=== PATIENT | female | born 1975 | race African-American/Black ===

== ENCOUNTER 2019-04-16 14:51 | Outpatient (CLI) | payer OTHER ==
--- NOTE | 2019-04-16 15:14 | RAD ---
EXAM: Chest PA and lateral: HISTORY: Preoperative chest radiograph. COMPARISON: None. FINDINGS: Heart: Normal cardiac silhouette Aorta: Unremarkable Pulmonary vessels: Normal Costophrenic angles: Costophrenic angles are clear. Lungs: No consolidation or masses. Pneumothorax: No pneumothorax Osseous structures: No osseous abnormalities IMPRESSION: No acute cardiopulmonary process.
== END 2019-04-16 14:52 | disposition home or self-care (01) ==
LOC: BICRAD 14:51
DX: Z01.818 Encounter for other preprocedural examination (principal)
CPT/HCPCS: 71046

== ENCOUNTER 2019-05-30 11:05 | Inpatient (IN) | payer OTHER ==
[2019-05-30] MEDS ORDERED: Iopamidol-370 76% 500 ML 1 ML ONE (12:20)
--- NOTE | 2019-05-30 12:48 | ULT ---
Left lower extremity venous duplex exam HISTORY: Leg pain and swelling. COMPARISON: None. FINDINGS: Real-time color Doppler evaluation of the left lower extremity was performed from groin to calf. This includes evaluation the common femoral superficial profundofemoral, saphenous, popliteal and posterior tibial veins. This shows some thrombus within the mid portion of the posterior tibial veins at the calf level. The remainder the deep venous system is patent with normal compressibility and augmentation. IMPRESSION: Calf DVT with thrombus demonstrated at the mid posterior tibial vein level.
[2019-05-30] MEDS ORDERED: Enoxaparin Sodium 60 MG/0.6 ML SYRINGE ONE (13:47)
[2019-05-30] MEDS ORDERED: HYDROcodone/Acetaminophen 10/325 mg Tablet ONE (13:52)
[2019-05-30 13:53] LABS: #Basophils 0.1 thou/uL (0.0-0.2); #Eosinphils 0.6 thou/uL (0.0-0.7); #Lymphocytes 2.5 thou/uL (1.20-3.40); #Monocytes 0.5 thou/uL (0.11-0.59); #Neutrophils 3.5 thou/uL (1.40-6.50); %Basophils 0.9 % (0.0-1.0); %Eosinophils 7.9 % (0.0-10.0); %Lymphocytes 34.6 % (21.0-51.0); %Monocytes 7.6 % (0.0-10.0); %Neutrophils 49.1 % (42.0-75.0); Hemoglobin 8.3 g/dL (12.0-16.0); Mean Corpuscular Hemoglobin 29.6 pg (27.0-31.0); Mean Corpuscular Volume 92.5 fL (78.0-98.0); Mean Platelet Volume 6.5 fL (7.4-10.4); Platelet Count 246 thou/uL (130-400); RBC Distribution Width 14.8 % (11.5-14.5); Red Blood Cell (RBC) Count 2.81 mill/uL (4.20-5.40); White Blood Cell (WBC) Count 7.1 thou/uL (4.8-10.8)
[2019-05-30 14:02] LABS: PTT 28.8 SEC (22.9-36.1); Prothrombin Time 13.4 SEC (12.0-14.7)
[2019-05-30 14:14] LABS: ALT (SGPT) 19 U/L (8-55); AST (SGOT) 17 U/L (5-34); Albumin 3.5 g/dL (3.5-5.0); Alkaline Phosphatase 66 U/L (40-110); Anion Gap 12 mmol/L (10-20); BUN (Urea Nitrogen) 7 mg/dL (7.0-18.7); Bilirubin, Total 0.5 mg/dL (0.2-1.2); CK (CPK) 108 U/L (29-168); Calc. Creatinine Clearance 0 mL/min (70-130); Calcium 8.6 mg/dL (7.8-10.44); Carbon Dioxide 26 mmol/L (22-29); Chloride 106 mmol/L (98-107); Estimated GFR-MDRD Greater than 90; Globulin 3.5 g/dL (2.4-3.5); Glucose 84 mg/dL (70-105); Potassium 3.6 mmol/L (3.5-5.1); Sodium 140 mmol/L (136-145)
[2019-05-30 14:19] LABS: BHCG - Serum Negative (NEGATIVE); Pregs Control Background? CLEAR/WHITE (CLR/WHITE); Pregs Control Bar Appear? YES (CONTROL BAR)
--- NOTE | 2019-05-30 15:15 | RAD ---
EXAM: Chest 2 views: HISTORY: Chest pain COMPARISON: 04/16/2019 FINDINGS: There is a normal-sized cardiomediastinal silhouette. There is no evidence of consolidation, mass, or pleural effusion. The bones are unremarkable. IMPRESSION: No evidence of acute cardiopulmonary disease
--- NOTE | 2019-05-30 15:21 | CT ---
EXAM: CTA of the chest HISTORY: Left leg pain. Liposuction surgery 2 weeks ago. Chest pain. COMPARISON: None TECHNIQUE: Multiple contiguous axial images were obtained a CTA of the chest with contrast per pulmon merlene embolism protocol. 3-D oblique MIP reformats and direct coronal reformats were performed. FINDINGS: HEART: Normal in size without focal cardiac abnormality. PULMONARY ARTERIES: Normal in caliber without filling defects to suggest pulmonary emboli. MEDIASTINUM: No hilar or mediastinal lymphadenopathy. LUNGS: No focal infiltrates or masses. PLEURAL SPACE: No pleural effusion or pneumothorax. CHEST WALL SOFT TISSUES: Stranding is seen in the upper abdominal wall fat from recent liposuction. VISUALIZED OSSEOUS STRUCTURES: Unremarkable VISUALIZED SUBDIAPHRAGMATIC STRUCTURES: Unremarkable IMPRESSION: No evidence of pulmonary thromboembolism
[2019-05-30] MEDS ORDERED: Ondansetron ODT 4 MG TAB SL PRN (15:31)
[2019-05-30] MEDS ORDERED: Ondansetron PF 4 MG/2 ML Vial IVP PRN (15:31)
[2019-05-30] MEDS ORDERED: Acetaminophen 650 MG Suppository PR PRN (16:07)
[2019-05-30 16:16] VITALS: BMI 34.4
--- NOTE | 2019-05-30 17:03 | HP ---
TIME OF ASSESSMENT: 1300. CHIEF COMPLAINT: Shortness of breath and left leg swelling. HISTORY OF PRESENT ILLNESS: Ms. Thompson is a pleasant 43-year-old woman, who presented to the emergency department with complaints of left lower extremity swelling for the last 2 days. She recently underwent liposuction surgery 2 weeks ago. She flew back on and since then has had noted swelling in the lower extremities. She first developed some slight swelling and discomfort in the right lower extremity and has been wearing compression stockings and then 2 days ago noted increasing swelling in the left lower extremity with throbbing pain. She was advised about the possibility of the DVT after surgery and with her flying, and therefore, was concerned prompting her to come to the emergency department. The patient denies having any chest pain, but has also noted some shortness of breath with exertion since her surgery. She was unsure if this was due to undergoing surgery or associated with her anemia. She is known to have iron deficiency anemia and states the hemoglobin prior to surgery was 14. In the emergency department today, her hemoglobin is 8.3. She denies any blood in her urine, any bright red blood per rectum, but has black stools which she attributes to the iron supplements, however, states her stools have had darker color than usual and "different smell". The patient states she has never undergone workup for the anemia due to not having insurance until recently. She reports having an occasional cough at night, but denies any sputum or hemoptysis. Denies having any headaches or dizziness. No abdominal pain or cramping. No urinary symptoms. No fevers, chills, or sweats. All other review of systems are negative. PAST MEDICAL HISTORY: Iron deficiency anemia. PAST SURGICAL HISTORY: 1. x2. 2. Liposuction. SOCIAL HISTORY: The patient denies any tobacco use. Drinks alcohol rarely. Denies any illicit drug use. ALLERGIES: 1. PENICILLIN. 2. POMEGRANATE. CURRENT MEDICATIONS: 1. Tramadol p.r.n. for pain. 2. Recently completed a 4-day course of clindamycin that was given postoperatively. PHYSICAL EXAMINATION: GENERAL: The patient appears well developed, well nourished. She is in no acute distress. VITAL SIGNS: Temperature 98.4, pulse 100, respirations 16, O2 saturation 100% on room air, blood pressure 124/74. Her heart rate has been ranging between 100 and 110 while in the ER. HEENT: Normocephalic and atraumatic. Pupils are equal, round, and reactive to light. Sclerae without icterus. Oropharynx is clear. NECK: Supple without lymphadenopathy. LUNGS: Clear to auscultation bilaterally without wheezes, rales, or rhonchi. CARDIAC: Regular rate and rhythm. ABDOMEN: Soft, nontender, and nondistended. Normoactive bowel sounds present. EXTREMITIES: Left lower extremity notable for swelling and increased girth compared to the right. Calf tenderness present. NEUROLOGIC: Alert and oriented x3. SKIN: Without rash or jaundice. BACK: Notable for incisions on her upper back bilaterally from the liposuction with no surrounding erythema, discharge, or bleeding. Similar incisions in the lumbar region are also without any evidence of infection such as erythema or discharge. ED COURSE: In the emergency department, the patient underwent Doppler ultrasound which demonstrated a left lower extremity DVT with thrombus demonstrated at the mid posterior tibial vein. She was treated with Lovenox 1 mg/kg. INVESTIGATIONS: As mentioned above in HPI. IMPRESSION AND PLAN: Ms. Thompson is a very pleasant 43-year-old woman, who has been found to have a deep venous thrombosis in the left lower extremity. She has been treated with Lovenox and is being admitted for observation as the patient was afraid to go home as I had initially advised. On assessment, the patient reports being tachycardic between 100 and 110 while in the emergency department and has been experiencing shortness of breath on exertion. We will go ahead and assess for pulmonary embolism with a CT angiogram given her normal renal function. We will continue with Lovenox. We will also add . She does feel somewhat anxious which could be contributing to the tachycardia, but also has a low hemoglobin of 8.3 which she states is lower from a level of 14 before surgery, and she has been having black stools which she attributes to the iron supplements; therefore, we will check for occult blood. We will also repeat her H and H to ensure no further drop since she has been started on Lovenox. The patient will be on continuous cardiac monitoring. She has no comorbidities. She is a full code status, and her surrogate decision maker is Mirian Alexander. The patient's case was discussed with Dr. Bhimji, who agrees with plan of care as described above. Job ID: [id number]
[2019-05-30 17:33] LABS: Hemoglobin 8.2 g/dL (12.0-16.0)
[2019-05-30] MEDS ORDERED: Enoxaparin Sodium 80 MG/0.8 ML SYRINGE SC SCH (21:00)
[2019-05-30] MEDS: Enoxaparin Sodium 80 MG/0.8 ML SYRINGE SC SCH (21:16)
[2019-05-30] MEDS: Acetaminophen 325 MG TAB PO PRN (21:23)
[2019-05-31] MEDS: Acetaminophen 325 MG TAB PO PRN ×3 (02:14→20:25)
[2019-05-31 05:00] LABS: #Eosinphils 0.7 thou/uL (0.0-0.7); #Lymphocytes 2.5 thou/uL (1.20-3.40); #Monocytes 0.6 thou/uL (0.11-0.59); #Neutrophils 2.7 thou/uL (1.40-6.50); %Basophils 0.2 % (0.0-1.0); %Eosinophils 11.2 % (0.0-10.0); %Lymphocytes 38.2 % (21.0-51.0); %Monocytes 8.8 % (0.0-10.0); %Neutrophils 41.7 % (42.0-75.0); Hemoglobin 8.2 g/dL (12.0-16.0); Mean Corpuscular HGB CONC 32.3 g/dL (32.0-36.0); Mean Corpuscular Hemoglobin 30.4 pg (27.0-31.0); Mean Corpuscular Volume 94.1 fL (78.0-98.0); Mean Platelet Volume 7.1 fL (7.4-10.4); Platelet Count 265 thou/uL (130-400); White Blood Cell (WBC) Count 6.5 thou/uL (4.8-10.8)
[2019-05-31 05:21] LABS: Anion Gap 11 mmol/L (10-20); BUN (Urea Nitrogen) 6 mg/dL (7.0-18.7); Calc. Creatinine Clearance 126 mL/min (70-130); Calcium 8.5 mg/dL (7.8-10.44); Carbon Dioxide 26 mmol/L (22-29); Chloride 108 mmol/L (98-107); Estimated GFR-MDRD Greater than 90; Glucose 98 mg/dL (70-105); Potassium 4.3 mmol/L (3.5-5.1); Sodium 141 mmol/L (136-145)
[2019-05-31] MEDS: Enoxaparin Sodium 80 MG/0.8 ML SYRINGE SC SCH (09:18)
[2019-05-31] MEDS ORDERED: traMADol HCl 50 MG TAB PO PRN (09:32)
[2019-05-31] MEDS: traMADol HCl 50 MG TAB PO PRN ×3 (09:55→23:07)
[2019-05-31] MEDS ORDERED: diphenhydrAMINE 25 MG CAP PO PRN (10:21)
[2019-05-31] MEDS ORDERED: Famotidine 20 MG TAB PO PRN (10:22)
[2019-05-31] MEDS ORDERED: Iron, Sodium Ferric Gluconate 250 MG in Sodium Chloride 0.9% 100 ML IVPB SCH (10:30)
[2019-05-31] MEDS ORDERED: Iron Sucrose Complex 300 MG in Sodium Chloride 0.9% 250 ML 250 ML IVPB SCH (10:30)
[2019-05-31 16:58] LABS: #Basophils 0.1 thou/uL (0.0-0.2); #Lymphocytes 4.4 thou/uL (1.20-3.40); #Monocytes 0.8 thou/uL (0.11-0.59); #Neutrophils 3.6 thou/uL (1.40-6.50); %Basophils 0.5 % (0.0-1.0); %Eosinophils 10.5 % (0.0-10.0); %Lymphocytes 44.9 % (21.0-51.0); %Monocytes 7.7 % (0.0-10.0); %Neutrophils 36.4 % (42.0-75.0); Hemoglobin 9.1 g/dL (12.0-16.0); Mean Corpuscular HGB CONC 32.6 g/dL (32.0-36.0); Mean Corpuscular Hemoglobin 30.5 pg (27.0-31.0); Mean Corpuscular Volume 93.6 fL (78.0-98.0); Mean Platelet Volume 6.8 fL (7.4-10.4); Platelet Count 333 thou/uL (130-400); RBC Distribution Width 15.3 % (11.5-14.5); Red Blood Cell (RBC) Count 2.98 mill/uL (4.20-5.40); White Blood Cell (WBC) Count 9.8 thou/uL (4.8-10.8)
[2019-05-31 17:13] LABS: Anion Gap 13 mmol/L (10-20); BUN (Urea Nitrogen) 5 mg/dL (7.0-18.7); Calc. Creatinine Clearance 128 mL/min (70-130); Calcium 8.6 mg/dL (7.8-10.44); Carbon Dioxide 23 mmol/L (22-29); Chloride 107 mmol/L (98-107); Estimated GFR-MDRD Greater than 90; Glucose 122 mg/dL (70-105); Potassium 3.5 mmol/L (3.5-5.1); Sodium 139 mmol/L (136-145)
[2019-05-31 17:19] LABS: Troponin I Less than 0.010 ng/mL (< 0.028)
--- NOTE | 2019-05-31 17:48 | CT ---
CT head noncontrast HISTORY: Fall. Head injury. FINDINGS: There is no evidence of acute intracranial hemorrhage or infarct. Mild physiologic calcific ation at each basal ganglia. There is no mass effect or shift of midline structures. Visualized paranasal sinuses remain well aera candido. IMPRESSION: No acute intracranial abnormalities are demonstrated.
[2019-05-31] MEDS: Sodium Chloride 0.9% 1,000 ML IV SCH (18:13)
--- NOTE | 2019-05-31 19:58 | PDOC.HOSPP ---
- Subjective Encounter Date: 05/31/19 Encounter Time: 19:57 Subjective: Patient seen and examined around 1030 am and during code green. Admitted with DVT. Had syncopal episode in bathroom while taking shower. No overnight events - Objective Vital Signs & Weight: Vital Signs (12 hours) Temp Temp Pulse Pulse Pulse Resp Resp 05/31/19 19:53 05/31/19 16:45 99 F 84 22 H 05/31/19 16:37 99.0 F 79 76 20 05/31/19 15:56 98.6 F 91 16 05/31/19 11:38 98.6 F 92 16 Resp BP BP BP BP Pulse Ox Pulse Ox 05/31/19 19:53 97 05/31/19 16:45 111/69 96 05/31/19 16:37 18 111/69 104/62 97 05/31/19 15:56 110/55 L 97 05/31/19 11:38 120/56 L 98 Pulse Ox 05/31/19 19:53 05/31/19 16:45 05/31/19 16:37 94 L 05/31/19 15:56 05/31/19 11:38 Weight Weight 176 lb 8 oz I&O: 05/30/19 05/31/19 06/01/19 06:59 06:59 06:59 Intake Total 1230 650 Output Total 600 800 Balance 630 -150 Result Diagrams: 05/31/19 16:49 05/31/19 16:49 Additional Labs: Accuchecks 05/31/19 16:45 POC Glucose 132 H Radiology Reviewed by me: Yes (Doppler - DVT, CTA - neg) EKG Reviewed by me: Yes (Tele SR) Hospitalist ROS - Review of Systems Respiratory: denies: cough, dry, shortness of breath, hemoptysis, SOB with excertion, pleuritic pain, sputum, wheezing, other Cardiovascular: denies: chest pain, palpitations, orthopnea, paroxysmal noc. dyspnea, edema, light headedness, other Gastrointestinal: denies: nausea, vomiting, abdominal pain, diarrhea, constipation, melena, hematochezia, other - Medication Medications: Active Medications Generic Name Dose Route Start Last Admin Trade Name Freq PRN Reason Stop Dose Admin Acetaminophen 650 mg 05/30/19 16:07 05/31/19 14:26 Tylenol PO 650 mg Q4H PRN Administration Headache/Fever/Mild Pain (1-3) Enoxaparin Sodium 80 mg 05/30/19 21:00 05/31/19 09:18 Lovenox SC 80 mg 0900,2100 RYAN Administration Sodium Chloride 1,000 mls @ 125 mls/hr 05/31/19 17:00 05/31/19 18:13 Normal Saline 0.9% IV 1,000 mls .Q8H RYAN Administration Tramadol HCl 50 mg 05/31/19 09:24 05/31/19 18:13 Ultram PO 50 mg Q4H PRN Administration Moderate Pain (4-6) - Exam General Appearance: NAD Neck: supple, no JVD Heart: RRR, no murmur, no gallops, no rubs Respiratory: CTAB, no rales, no ronchi, normal chest expansion Gastrointestinal: soft, non-tender, non-distended, normal bowel sounds Neurological: no new deficit Psychiatric: normal affect, A&O x 3 Hosp A/P - Plan DVT proph w/lovenox LLE DVT - prob due to recent immobilization/surgery s/p code green - Nearsyncope - no abn rhythm on tele monitor Obesity BMI 34.5 Iron def Anemia PLAN: Cont Lovenox PE ruled out Monitor overnight due to code green Echo Check Orthostatic vitals IVF Tele monitoring Hold Lovenox tonight due to fall/syncope - Will resume in AM Change to Eliquis at dc
[2019-06-01] MEDS: traMADol HCl 50 MG TAB PO PRN ×2 (03:25→09:20)
[2019-06-01] MEDS: Sodium Chloride 0.9% 1,000 ML IV SCH ×2 (03:27→14:46)
[2019-06-01] MEDS: Acetaminophen 325 MG TAB PO PRN ×2 (06:34→13:57)
[2019-06-01] MEDS: Enoxaparin Sodium 80 MG/0.8 ML SYRINGE SC SCH (09:18)
[2019-06-01 11:54] VITALS: BP 119/71; TEMP 98
--- NOTE | 2019-06-02 14:26 | DIS ---
DATE OF ADMISSION: 05/30/2019 DATE OF DISCHARGE: 06/01/2019 DISCHARGE DISPOSITION: Home. FOLLOWUP: Follow up with primary care physician. Please note that patient will establish care with [facility]. DISCHARGE MEDICATIONS: 1. Eliquis 10 mg twice daily for next 5 days followed by 5 mg b.i.d. 2. Ferrous sulfate 220 mg twice a day. 3. Tramadol as needed. INPATIENT CONSULTANTS: None. BRIEF HOSPITAL COURSE: The patient is a 43-year-old female [place], presented to the hospital with shortness of breath with right lower extremity swelling. A CT angiogram of the chest was negative for pulmonary embolism. The Doppler was positive for mid posterior tibial vein DVT. The patient was started on Lovenox that has been changed to Eliquis. Please note that on 31 May 2019, the patient had near syncopal episode with fall on her gluteal region while taking a shower. This was probably due to vasovagal event. Telemetry monitoring was negative. An echocardiogram and CT brain were obtained due to this reason. Echocardiogram showed ejection fraction 50% to 55% with mild mitral regurgitation, mild tricuspid regurgitation. A CT scan of the brain was negative. Telemetry monitoring did not show significant rhythm abnormalities throughout the hospital stay. She understands the risk associated with anticoagulation. Fall precaution was extensively emphasized. She was advised to follow up with primary care physician in 3 days. FINAL DIAGNOSES: 1. Shortness of breath, multifactorial. 2. Left lower extremity DVT. 3. Near syncopal episode with a fall during this hospital stay without significant injuries. 4. Iron deficiency anemia. The patient received a 300 mg of IV piggyback iron dose. Her hemoglobin at discharge is 9.1 from 8.3 on admission. 5. Mild tricuspid regurgitation. 6. Mild mitral regurgitation. 7. Obesity with a BMI of 34.5. PLAN: Plan was discussed with the patient in detail. She stated understanding. Job ID: [id number]
== END 2019-06-01 16:33 | disposition home or self-care (01) | DRG 300 ==
LOC: ERS 11:05 → OBSVTOIN 15:48 → 2SW 15:48
PROVIDERS: ADMIT Family Medicine; ATTEND Family Medicine
DX: T81.72XA Complication of vein following a procedure, not elsewhere classified, initial encounter (principal); I82.442 Acute embolism and thrombosis of left tibial vein; Y83.8 Other surgical procedures as the cause of abnormal reaction of the patient, or of later complication, without mention of misadventure at the time of the procedure; E66.9 Obesity, unspecified; D50.9 Iron deficiency anemia, unspecified; H35.62 Retinal hemorrhage, left eye; Z88.0 Allergy status to penicillin; Z68.34 Body mass index [BMI] 34.0-34.9, adult; Z91.018 Allergy to other foods
CPT/HCPCS: 36415; 36416; 70450; 71046; 71275; 80048; 80053; 82550; 82607; 82746; 83690; 83880; 84484; 84703; 85025; 85610; 85730; 93005; 93010; 93306; 94760; J1650; J2916; J3490; Q9967

== ENCOUNTER 2023-11-19 12:51 | Outpatient (CLI) | payer BC | END 2023-11-19 12:52 | disposition home or self-care (01) | LOC: BICMAMMO 12:51 | PROVIDERS: ATTEND Nurse Practitioner Family | DX: Z12.31 Encounter for screening mammogram for malignant neoplasm of breast (principal) | CPT/HCPCS: 77063; 77067 ==